=== PATIENT | female | born 1975 | race Caucasian/White ===

== ENCOUNTER → 2019-10-28 | Outpatient (CLI) | payer OTHER ==
[~2019-10-28] MED LIST: AMLO5TAB9 PO; ASPI-983 PO; ASPI-999 PO; ATOR20TA66 PO; LISI-552 PO; METO100T6 PO
== END ==
LOC: EDUNIT# 10-20 12:51 → CARD 11:01
PROVIDERS: ATTEND Nurse Practitioner Family
DX: R07.9 Chest pain, unspecified (principal); I10 Essential (primary) hypertension; R55 Syncope and collapse; R06.09 Other forms of dyspnea
CPT/HCPCS: 93225; 93226; 93306

== ENCOUNTER 2019-11-02 11:26 | Day surgery (SDC) | payer OTHER ==
[~2019-11-02] VITALS: Ht 157 cm; Wt 55.0 kg
[2019-11-02] VITALS (9 sets, daily range): BP systolic 109–143; BP diastolic 55–85
[2019-11-02] MEDS ORDERED: LIDOCAINE 1% INJ 20 ML 20 ML VIAL ONE (11:38)
[2019-11-02] MEDS ORDERED: HEParin (CATH LAB) 2,000 ML IV ONE (11:38)
[2019-11-02] MEDS ORDERED: NS IV 1000 ML 1,000 ML ONE (11:38)
[2019-11-02] MEDS ORDERED: NS IV 1000 ML 1,000 ML IV SCH ×2 (11:45→13:43)
--- OUTSIDE RECORDS SUMMARY | 2019-11-02 12:06 | XMS REPORT | Clinical Summary ---
Author Author Corky, Berna Mejía Organization [facility] Address Unknown Phone Unavailable Allergies, Adverse Reactions, Alerts Allergy Name Reaction Description Start Date Severity Status Pr ovider NKDA Critical Active Felisa tan LPN Conditions or Problems Problem Name Problem Code Onset Date Status Entry Date Provider Comment Standard Description Annotate HYPERLIPIDEMIA 272.4 Active Jaziel Canales DO Other and unspecified hyperlipidemia HYPERTENSION 401.9 Active Jaziel Canales DO U nspecified essential hypertension ABDOMINAL PAIN, EPIGASTRIC 789.06 Active Jaziel Canales DO Abdominal pain, epigastric FH DEPRESSION V17.0 Active Jaziel Canales DO Family history of psychiatric condition DEPRESSION 311 Active Jaziel Canales DO Dep ressive disorder, not elsewhere classified BMI 22-22.9 Active Felisa Obrien LPN Body Mass Index between 19-24, adult Medication List Medication Instructions Start Date Stop Date Generic Name ND Status Provider Patient Instruction AUGMENTIN 500-125 MG ORAL TABLET BID NELA XICILLIN-POT CLAVULANATE 86120616705 Active Felisa Obrien LPN Active [facility] MELATONIN 10 MG ORAL CAPSULE PRN to help with sleep MELATONIN 30690901791 Active Felisa Obrien LPN Active ACIDOPHILUS PROBIOTIC 10 MG ORAL CAPSULE 1 tablet daily LACTOBACILLUS 28197886957 Active Felisa Obrien LPN Active SM POTASSIUM 595 (99 K) MG ORAL TABLET 1 tablet daily POTASSIUM GLUCONATE 77599676297 Active Felisa Obrien LPN Active SERTRALINE HCL 50 MG ORAL TABLET 1 daily for depression SERTRALINE HCL 14578788922 No Longer Active Felisa Obrien LPN Ac tive RANITIDINE HCL 150 MG ORAL CAPSULE 1 twice a day 04/06 RANITIDINE HCL 37356594078 No Longer Active Felisa Obrien LPN Ac tive ZOLPIDEM TARTRATE 10 MG ORAL TABLET TAKE 1 TAB BY MOUT H AT BEDTIME NEEDED FOR INSOMNIA ZOLPIDEM TARTRATE 94691181944 No Longer Active Felisa Obrien LPN Active SIMVASTATIN 40 MG ORAL TABLET Take one by mouth daily 2018 SIMVASTATIN 51426842842 No Longer Active Felisa Obrien LPN Active LISINOPRIL 20 MG ORAL TABLET 1 tablet daily LISIN OPRIL 57100398642 Active Felisa Obrien LPN Active VERAPAMIL HCL 120 MG ORAL TABLET 1/2 tab by mouth twice daily VERAPAMIL HCL 30479636770 No Longer Active Jaziel Canales DO Active CELEXA 20 MG ORAL TABLET Take one by mouth daily for depression CITALOPRAM HYDROBROMIDE 15834918039 No Longer Active Jaziel Canales DO Active BENTYL 10 MG ORAL CAPSULE Take one by mouth 3 times da mehdi, morning, afternoon and evening.] DICYCLOMINE HCL 57199028707 No Longer A ctive Jaziel Canales DO Active BENTYL 10 MG ORAL CAPSULE Take one by mouth 3 times da mehdi, morning, afternoon and evening.] BENTYL 10 MG ORAL CAPSULE DICYCLO MINE HCL Inactive CELEXA 20 MG ORAL TABLET Take one by mouth daily for depression CELEXA 20 MG ORAL TABLET 507149 CITALOPRAM HYDROBROMIDE Inactive VERAPAMIL HCL 120 MG ORAL TABLET 1/2 tab by mouth twice daily VERAPAMIL HCL 120 MG ORAL TABLET 237413 VERAPAMIL HCL Inactiv e SIMVASTATIN 40 MG ORAL TABLET Take one by mouth daily SIMVASTATIN 40 MG ORAL TABLET 371004 SIMVASTATIN Inactive ZOLPIDEM TARTRATE 10 MG ORAL TABLET TAKE 1 TAB BY MOUT H AT BEDTIME NEEDED FOR INSOMNIA ZOLPIDEM TARTRATE 10 MG ORAL TABLET 67127 3 ZOLPIDEM TARTRATE Inactive RANITIDINE HCL 150 MG ORAL CAPSULE 1 twice a day 04/06 RANITIDINE HCL 150 MG ORAL CAPSULE 377007 RANITIDINE HCL Inact eitan SERTRALINE HCL 50 MG ORAL TABLET 1 daily for depression SERTRALINE HCL 50 MG ORAL TABLET 336364 SERTRALINE HCL Inactiv e Vital Signs Date Name Value Unit Range Description blood pressure, diastolic, second observation 89 m m[Hg] BP pérez blood pressure, diastolic, repeated by physician 89 BP pérez blood pressure, diastolic 97 mm[Hg] BP pérez blood pressure, systolic, second observation 139 mm [Hg] BP sys blood pressure, systolic, repeated by physician 139 BP sys blood pressure, systolic 159 mm[Hg] BP sys height E&M 61.25 [in_us] Bdy height pulse rate E&M 84 /min Heart rate temperature E&M 98.5 [degF] Body temp erature weight E&M 120 [lb_av] Weight Measure d Encounters Code Encounter Date Provider Facility CPT-90696 Level 3 Est. Patient 14:09:23 POSTING SPECIALIST Jaziel caicedo [facility] CPT-73260 Level 3 Est. Patient 14:46:14 CDT Jaziel caicedo [facility] CPT-27691 Level 3 Est. Patient 06:02:56 POSTING SPECIALIST Jaziel caicedo [facility] CPT-10203 Level 3 Est. Patient 13:25:14 POSTING SPECIALIST Jaziel caicedo [facility] CPT-12277 Level 3 Est. Patient 13:24:14 POSTING SPECIALIST Jaziel caicedo [facility]
--- OUTSIDE RECORDS SUMMARY | 2019-11-02 12:06 | XMS REPORT | Clinical Summary ---
Author Author Corky, Berna Mejía Organization [facility] Address Unknown Phone Unavailable Allergies, Adverse [...] Instructions Start Date Stop Date Generic Name NDC Status Provider Patient Instruction AUGMENTIN 500-125 MG ORAL TABLET BID NELA XICILLIN-POT CLAVULANATE 12168780507 Active Felisa Obrien LPN Active [facility] MELATONIN 10 MG ORAL CAPSULE PRN to help with sleep MELATONIN 44334633938 Active Felisa Obrien LPN Active ACIDOPHILUS PROBIOTIC 10 MG ORAL CAPSULE 1 tablet daily LACTOBACILLUS 07731646710 Active Felisa Obrien LPN Active SM POTASSIUM 595 (99 K) MG ORAL TABLET 1 tablet daily POTASSIUM GLUCONATE 53165473105 Active Felisa Obrien LPN Active SERTRALINE HCL 50 MG ORAL TABLET 1 daily for depression SERTRALINE HCL 53190403698 No Longer Active Felisa Obrien LPN Ac tive RANITIDINE HCL 150 MG ORAL CAPSULE 1 twice a day 04/06 RANITIDINE HCL 50155740024 No Longer Active Felisa Obrien LPN Ac tive ZOLPIDEM TARTRATE 10 MG ORAL TABLET TAKE 1 TAB BY MOUT H AT BEDTIME NEEDED FOR INSOMNIA ZOLPIDEM TARTRATE 60227861505 No Longer Active Felisa Obrien LPN Active SIMVASTATIN 40 MG ORAL TABLET Take one by mouth daily 2018 SIMVASTATIN 87204492638 No Longer Active Felisa Obrien LPN Active LISINOPRIL 20 MG ORAL TABLET 1 tablet daily LISIN OPRIL 45982761570 Active Felisa Obrien LPN Active VERAPAMIL HCL 120 MG ORAL TABLET 1/2 tab by mouth twice daily VERAPAMIL HCL 79787058572 No Longer Active Jaziel Canales DO Active CELEXA 20 MG ORAL TABLET Take one by mouth daily for depression CITALOPRAM HYDROBROMIDE 62769468431 No Longer Active Jaziel Canales DO Active BENTYL 10 MG ORAL CAPSULE Take one by mouth 3 times da mehdi, morning, afternoon and evening.] DICYCLOMINE HCL 97571600094 No Longer A ctive Jaziel Canales DO Active BENTYL 10 MG ORAL CAPSULE Take one by mouth 3 times da mehdi, morning, afternoon and evening.] BENTYL 10 MG ORAL CAPSULE DICYCLO MINE HCL Inactive CELEXA 20 MG ORAL TABLET Take one by mouth daily for depression CELEXA 20 MG ORAL TABLET 180136 CITALOPRAM HYDROBROMIDE Inactive VERAPAMIL HCL 120 MG ORAL TABLET 1/2 tab by mouth twice daily VERAPAMIL HCL 120 MG ORAL TABLET 441921 VERAPAMIL HCL Inactiv e SIMVASTATIN 40 MG ORAL TABLET Take one by mouth daily SIMVASTATIN 40 MG ORAL TABLET 295943 SIMVASTATIN Inactive ZOLPIDEM TARTRATE 10 MG ORAL TABLET TAKE 1 TAB BY MOUT H AT BEDTIME NEEDED FOR INSOMNIA ZOLPIDEM TARTRATE 10 MG ORAL TABLET 49545 3 ZOLPIDEM TARTRATE Inactive RANITIDINE HCL 150 MG ORAL CAPSULE 1 twice a day 04/06 RANITIDINE HCL 150 MG ORAL CAPSULE 569647 RANITIDINE HCL Inact eitan SERTRALINE HCL 50 MG ORAL TABLET 1 daily for depression SERTRALINE HCL 50 MG ORAL TABLET 472884 SERTRALINE HCL Inactiv e Vital Signs Date [...] d Encounters Code Encounter Date Provider Facility CPT-96419 Level 3 Est. Patient 14:09:23 SPEECH INSTRUCTOR Jaziel caicedo [facility] CPT-54941 Level 3 Est. Patient 14:46:14 CDT Jaziel caicedo [facility] CPT-50876 Level 3 Est. Patient 06:02:56 SPEECH INSTRUCTOR Jaziel caicedo [facility] CPT-22662 Level 3 Est. Patient 13:25:14 SPEECH INSTRUCTOR Jaziel caicedo [facility] CPT-73197 Level 3 Est. Patient 13:24:14 SPEECH INSTRUCTOR Jaziel caicedo [facility]
--- OUTSIDE RECORDS SUMMARY | 2019-11-02 12:06 | XMS REPORT ---
Author Author Berna LIMA Organization [address] Address [address] [place] [address] Care Team Providers Care Supportability Engineer Name Role Phone LIMA, MAIDA Unavailable PROBLEMS Type Condition ICD9-CM Code [id number] Code Onset Dates Condition S tatus SNOMED Code Problem HTN (hypertension), benign I10 Act eitan 50086236 Problem Abnormal laboratory test R89.9 Activ e [id number] ALLERGIES No Information ENCOUNTERS Encounter Location Date Diagnosis [facility] [address] [place] [id number] December, HTN (hypertension), benign I10 [facility] [address] [place] [address] Nov, Dental examination Z01.20 and Caries K02.[address] [address] Oct, Bilateral leg edema R60.0 and HTN (hypertension), benign I10 [facility] [address] [place] [address] Aug, Abnormal laboratory test R89.9 [facility] [address] [place] [address] Aug, Leg swelling M79.89 ; Strain of right trapezius muscle, sequela S46.811S and Upper respiratory tract infection, unspecified type J06.[address] [address] Aug, Bilateral leg edema R60.0 ; Exertional dyspnea R06.09 and Family history of heart disease Z82.49 [facility] [address] [id number] [place] [address] Aug, [place] [address] [place] [address] [facility] [id number] [place] [address] Jun, Encounter to establish care Z76.89 and HTN (hypertension), benign I10 IMMUNIZATIONS No Known Immunizations SOCIAL HISTORY Never Assessed REASON FOR VISIT Medication refill request PLAN OF CARE VITAL SIGNS MEDICATIONS Medication Instructions Dosage Frequency Start Date End Date Duration S tatus Lisinopril 20 mg Orally Once a day 1 tablet 24h Jun, 45 days Active Hydrochlorothiazide 25 MG Orally Once a day 1 tablet in the morning 24h Aug, 30 day(s) Active RESULTS No Results PROCEDURES No Known procedures INSTRUCTIONS MEDICATIONS ADMINISTERED No Known Medications MEDICAL (GENERAL) HISTORY Type Description Date Medical History HTN Surgical History tubes tied Hospitalization History childbirth
--- OUTSIDE RECORDS SUMMARY | 2019-11-02 12:06 | XMS REPORT | Clinical Summary ---
Author Author Corky, Berna Mejía Organization [facility] Address Unknown Phone Unavailable Allergies, Adverse Reactions, Alerts Allergy Name Reaction Description Start Date Severity Status Pr ovider No Known Allergies Randy Bailey Conditions or Problems Problem Name Problem Code [...] DO Dep ressive disorder, not elsewhere classified Medication List Medication Instructions Start Date Stop Date Generic Name NDC Status Provider Patient Instruction SERTRALINE HCL 50 MG ORAL TABLET 1 daily for depression SERTRALINE HCL 78735567726 Active Jaziel Canales DO Active RANITIDINE HCL 150 MG ORAL CAPSULE 1 twice a day RANITIDINE HCL 63646882787 Active Jaziel Canales DO Active VERAPAMIL HCL 120 MG ORAL TABLET 1/2 tab by mouth twice daily VERAPAMIL HCL 53336463596 No Longer Active Jaziel Canales DO Active CELEXA 20 MG ORAL TABLET Take one by mouth daily for depression CITALOPRAM HYDROBROMIDE 64669303986 No Longer Active Jaziel Canales DO Active BENTYL 10 MG ORAL CAPSULE Take one by mouth 3 times da mehdi, morning, afternoon and evening.] DICYCLOMINE HCL 55564564335 No Longer A ctive Jaziel Canales DO Active LISINOPRIL 10 MG ORAL TABLET Take one by mouth bid LISINOPRIL 22218937718 Active Jaziel Canales DO Active SIMVASTATIN 40 MG ORAL TABLET Take one by mouth daily SIMVASTATIN 95784644872 Active Jaziel Canales DO Active ZOLPIDEM TARTRATE 10 MG ORAL TABLET TAKE 1 TAB BY MOUT H AT BEDTIME NEEDED FOR INSOMNIA ZOLPIDEM TARTRATE 11222755668 Active Jaziel Canales DO Active BENTYL 10 MG ORAL CAPSULE Take one by mouth 3 times da mehdi, morning, afternoon and evening.] BENTYL 10 MG ORAL CAPSULE 871246 D ICYCLOMINE HCL Inactive VERAPAMIL HCL 120 MG ORAL TABLET 1/2 tab by mouth twice daily VERAPAMIL HCL 120 MG ORAL TABLET 488856 VERAPAMIL HCL Inactiv e CELEXA 20 MG ORAL TABLET Take one by mouth daily for depression CELEXA 20 MG ORAL TABLET 525082 CITALOPRAM HYDROBROMIDE Inactive Encounters Code Encounter Date Provider Facility CPT-74221 Level 3 Est. Patient 14:09:23 DIRECTOR HUMAN SERVICES Jaziel caicedo [facility] CPT-27294 Level 3 Est. Patient 14:46:14 CDT Jaziel caicedo [facility] CPT-94039 Level 3 Est. Patient 06:02:56 DIRECTOR HUMAN SERVICES Jaziel caicedo [facility] CPT-92501 Level 3 Est. Patient 13:25:14 DIRECTOR HUMAN SERVICES Jaziel caicedo DO [facility] CPT-73781 Level 3 Est. Patient 13:24:14 DIRECTOR HUMAN SERVICES Jaziel caicedo DO [facility]
--- OUTSIDE RECORDS SUMMARY | 2019-11-02 12:06 | XMS REPORT ---
Author Author Berna DARLING Organization [facility] [address] Address [address] [place] [address] Care Team Providers Care Riding Double Name Role Phone ARTIS DARLING Unavailable PROBLEMS Type Condition ICD9-CM Code [id number] Code Onset Dates Condition S tatus SNOMED Code Problem HTN (hypertension), benign I10 Act eitan [id number] ALLERGIES No Known Allergies ENCOUNTERS Encounter Location Date Diagnosis [facility] [address] [place] [address] Jun, Encounter to establish care Z76.89 and HTN (hypertension), benign I10 IMMUNIZATIONS No Known Immunizations SOCIAL HISTORY Never Assessed REASON FOR VISIT Establish Care- Luis E Hou RN, needs blood pressure medication verified with Carlos ashby at [facility] dosage of medication PLAN OF CARE Activity Details Follow Up 3 months or as indicated by lab Reason: VITAL SIGNS Height 62 in 2018-07-04 Weight 126 lbs 2018-07-04 Temperature 97.9 degrees Fahrenheit 2018-07-04 Heart Rate 98 bpm 2018-07-04 Respiratory Rate 18 2018-07-04 BMI 23.04 kg/m2 2018-07-04 Blood pressure systolic 124 mmHg 2018-07-04 Blood pressure diastolic 80 mmHg 2018-07-04 MEDICATIONS Medication Instructions Dosage Frequency Start Date End Date Duration S tatus Lisinopril 20 MG Orally Once a day 1 tablet 24h 30 d ay(s) Active Lisinopril 20 mg Orally Once a day 1 tablet 24h Jun, 45 days Active RESULTS No Results PROCEDURES No Known procedures INSTRUCTIONS MEDICATIONS ADMINISTERED No Known Medications MEDICAL (GENERAL) HISTORY Type Description Date Medical History HTN Surgical History tubes tied Hospitalization History childbirth
--- OUTSIDE RECORDS SUMMARY | 2019-11-02 12:06 | XMS REPORT ---
Author Author [email or web address] Staff[facility]AVEN Organization [facility] Address [address] [place] [address] Phone [phone] Care Team Providers Care Orthopedic Shoes Salesperson Name Role Phone MARIS TONG DO PP [phone] Summary purpose TRANSITION OF CARE AUTO GENERATION Chief Complaint and Reason for Visit No authorized Reason for Visit (Admitting Diagnosis) is available for this visit . Problem list No authorized problems tracked for continuity of care are available for this vis it. Encounters No authorized problems tracked for encounter diagnoses are available for this vi sit. Medications No medications recorded for this patient visit Allergies, adverse reactions, alerts Allergen Category Ingredient Status Reaction Severity Onset No Known Drug Allergy No known drug allergies No known drug vandana rgies Confirmed or Verified Immunizations No immunizations recorded for this patient visit Relevant diagnostic tests and/or laboratory data RESULTS Chemistry [id number]:31:00 Result Normal Range Units Sodium 137 134-145 mEq/l Potassium 3.5 3.5-5.1 mEq/l Chloride 101 98-107 mEq/l CO2 25.4 22-28 mEq/l Glucose H 109 70-105 mg/dl BUN L 5 7-18 mg/dl Creatinine 0.67 0.6-1.0 mg/dl Calcium 8.7 8.4-10.2 mg/dl TP - Total Protein 8.2 6.0-8.3 g /dl Albumin 4.2 3.5-5 g/dl Bilirubin - Total 0.5 0.1-1.0 mg /dl AST 20 10-42 IU/L ALT 28 12-65 IU/L ALP H 89 25-72 IU/L Amylase L 22 25-125 U/L Lipase L 49 73-393 U/L Osmolality L 271.7 280-300 mOsm/L Albumin/Globulin Ratio 1.1 0-8 Anion GAP 10.6 8-16 BUN/Creatinine Ratio L 7.5 10-20 Estimated GFR 97 >= 60 mL/min /1.7 Hematology :31:00 Result Normal Range Units WBC 9.2 4.8-10.8 103/uL RBC 4.9 4.2-5.4 106/uL HGB 14.9 12.0-16.0 g/dl HCT 43.6 36.9-47.0 % MCV 89.3 81-99 FL MCH 30.5 27-31 pg MCHC 34.2 33-37 g/dl RDW 11.9 11.5-15.5 % PLT 323 130-400 103/uL MPV 9.0 7.3-10.4 FL Neutro % H 77.6 40-70 % Lymph % L 10.8 20-40 % Bennett % 9.0 0-10.0 % Eos % 2.0 0-7.0 % Baso % 0.4 0-2 % Neutro # 7.2 1.5-7.5 103/uL Lymph # 1.0 0.9-4.0 103/uL Bennett # 0.8 0-0.8 103/uL Eos # 0.2 0-0.6 103/uL Baso # 0.0 0-0.1 103/uL Reference Lab (Sendout) :32:00 Result Normal Range Units Influenza A & B, Rapid Negative Negative Radiology Results :31:00 Result Normal Range Units MPV 9.0 7.3-10.4 FL History of procedures No procedures recorded for this patient visit. Functional status Functional Status Finding Observation Time Abdomen Appearance round [id number] Abdomen soft 03-18-551622:10 Urination normal [id number]:10 Quality sym/unlabored :10 Cough absent :10 Secretions no :10 Airway natural 85-29-020240:10 Oxygen no :00 Temp >100.4 no :05 Temp <96.8 no :05 Chills with rigors no :05 HR > 90bpm no :05 Respirations > 20 no :05 Systolic <90 no :05 headache stiff neck no :05 IV Site Location R AC :05 IV Type peripheral :05 IV Site Information discontinued : IV Site Start Attmpt 2 times :40 IV Site Kodi 20 [id number]:40 IV Site Appearance WNL :40 IV Site Color clear :40 IV Site Patent yes :40 Dressing Changed yes :40 Dressing Type occlusive :40 Nursing Note Discharge instructionsgiven, voices understanding. Rx zofran et zithromax. Homepack zofran. Iv site dcd. Amb off unit in fair condition. :05 Vital signs Type Value Date Respiration Rate 18breaths per minute : 00 Pulse 98beats per minute :00 Oxygen Saturation 99% :00 BP Systolic 157mmHg :00 BP Diastolic 89mmHg [id number]:00 Temperature 98.8F :54 Weight 144.2LB :54 Social history No Social History or smoking status observations were recorded for this visit. ( Unknown if ever smoked.) Treatment Plan No treatment plan text is available for this visit. Hospital discharge instructions Dismissal Condition good Disposition on DC home DC Inst/Educ Give yes Med/Side Effects Rev yes Comment: rx zithromax et zofran, homepack zofran
--- OUTSIDE RECORDS SUMMARY | 2019-11-02 12:06 | XMS REPORT | Clinical Summary ---
Author Author Corky, Berna Mejía Organization [facility] Address Unknown Phone Unavailable Allergies, Adverse Reactions, [...] MG ORAL TABLET BID NELA XICILLIN-POT CLAVULANATE 11004454307 Active Felisa Obrien LPN Active [facility] MELATONIN 10 MG ORAL CAPSULE PRN to help with sleep MELATONIN 45867201740 Active Felisa Obrien LPN Active ACIDOPHILUS PROBIOTIC 10 MG ORAL CAPSULE 1 tablet daily LACTOBACILLUS 22143489471 Active Felisa Obrien LPN Active SM POTASSIUM 595 (99 K) MG ORAL TABLET 1 tablet daily POTASSIUM GLUCONATE 11636850057 Active Felisa Obrien LPN Active SERTRALINE HCL 50 MG ORAL TABLET 1 daily for depression SERTRALINE HCL 90919329075 No Longer Active Felisa Obrien LPN Ac tive RANITIDINE HCL 150 MG ORAL CAPSULE 1 twice a day 04/06 RANITIDINE HCL 92955548719 No Longer Active Felisa Obrien LPN Ac tive ZOLPIDEM TARTRATE 10 MG ORAL TABLET TAKE 1 TAB BY MOUT H AT BEDTIME NEEDED FOR INSOMNIA ZOLPIDEM TARTRATE 05054500698 No Longer Active Felisa Obrien LPN Active SIMVASTATIN 40 MG ORAL TABLET Take one by mouth daily 2018 SIMVASTATIN 80663719119 No Longer Active Felisa Obrien LPN Active LISINOPRIL 20 MG ORAL TABLET 1 tablet daily LISIN OPRIL 11597261900 Active Felisa Obrien LPN Active VERAPAMIL HCL 120 MG ORAL TABLET 1/2 tab by mouth twice daily VERAPAMIL HCL 01986475068 No Longer Active Jaziel Canales DO Active CELEXA 20 MG ORAL TABLET Take one by mouth daily for depression CITALOPRAM HYDROBROMIDE 77303628684 No Longer Active Jaziel Canales DO Active BENTYL 10 MG ORAL CAPSULE Take one by mouth 3 times da mehdi, morning, afternoon and evening.] DICYCLOMINE HCL 54412891695 No Longer A ctive Jaziel Canales DO Active BENTYL 10 MG ORAL CAPSULE Take one by mouth 3 times da mehdi, morning, afternoon and evening.] BENTYL 10 MG ORAL CAPSULE DICYCLO MINE HCL Inactive CELEXA 20 MG ORAL TABLET Take one by mouth daily for depression CELEXA 20 MG ORAL TABLET 086870 CITALOPRAM HYDROBROMIDE Inactive VERAPAMIL HCL 120 MG ORAL TABLET 1/2 tab by mouth twice daily VERAPAMIL HCL 120 MG ORAL TABLET 167721 VERAPAMIL HCL Inactiv e SIMVASTATIN 40 MG ORAL TABLET Take one by mouth daily SIMVASTATIN 40 MG ORAL TABLET 556649 SIMVASTATIN Inactive ZOLPIDEM TARTRATE 10 MG ORAL TABLET TAKE 1 TAB BY MOUT H AT BEDTIME NEEDED FOR INSOMNIA ZOLPIDEM TARTRATE 10 MG ORAL TABLET 94450 3 ZOLPIDEM TARTRATE Inactive RANITIDINE HCL 150 MG ORAL CAPSULE 1 twice a day 04/06 RANITIDINE HCL 150 MG ORAL CAPSULE 845876 RANITIDINE HCL Inact eitan SERTRALINE HCL 50 MG ORAL TABLET 1 daily for depression SERTRALINE HCL 50 MG ORAL TABLET 289985 SERTRALINE HCL Inactiv e Vital Signs Date [...] d Encounters Code Encounter Date Provider Facility CPT-72710 Level 3 Est. Patient 14:09:23 DRIVER SERVICE TECHNICIAN Jaziel caicedo [facility] CPT-25266 Level 3 Est. Patient 14:46:14 CDT Jaziel caicedo [facility] CPT-96179 Level 3 Est. Patient 06:02:56 DRIVER SERVICE TECHNICIAN Jaziel caicedo [facility] CPT-82897 Level 3 Est. Patient 13:25:14 DRIVER SERVICE TECHNICIAN Jaziel caicedo [facility] CPT-19528 Level 3 Est. Patient 13:24:14 DRIVER SERVICE TECHNICIAN Jaziel caicedo [facility]
--- OUTSIDE RECORDS SUMMARY | 2019-11-02 12:06 | XMS REPORT ---
Author Author [facility] Medic [facility] StaffHEAVEN Organization [facility] Address [address], [place] [address] Phone [phone] Care Team Providers Care Dental Appliance Repairer Name Role Phone MARIS TONG DO PP [phone] Summary purpose TRANSITION OF CARE AUTO GENERATION [...] diagnostic tests and/or laboratory data RESULTS Chemistry [id number]:31:00 Result Normal Range Units Sodium 137 134-145 [...] GFR 97 >= 60 mL/min /1.7 Hematology 63-79-170219:31:00 Result Normal Range Units WBC 9.2 4.8-10.8 103/uL RBC 4.9 4.2-5.4 106/uL HGB 14.9 12.0-16.0 g/dl HCT 43.6 36.9-47.0 % MCV 89.3 81-99 FL MCH 30.5 27-31 pg MCHC 34.2 33-37 g/dl RDW 11.9 11.5-15.5 % PLT 323 130-400 103/uL MPV 9.0 7.3-10.4 FL Neutro % H 77.6 40-70 % Lymph % L 10.8 20-40 % [place] % 9.0 0-10.0 % Eos % 2.0 0-7.0 % Baso % 0.4 0-2 % Neutro # 7.2 1.5-7.5 103/uL Lymph # 1.0 0.9-4.0 103/uL [place] # 0.8 0-0.8 103/uL Eos # 0.2 0-0.6 103/uL Baso # 0.0 0-0.1 103/uL Reference Lab ([facility]) [id number]:32:00 Result Normal Range Units Influenza A & B, Rapid Negative Negative Radiology Results [id number]:31:00 Result Normal Range Units MPV 9.0 7.3-10.4 FL History of procedures Procedure Code Code Type Description Date Performed Performing Physician 46479 CPT-4 ROUTINE VENIPUNCTURE 10-11-2015 AYAKA WANG 83367 CPT-4 COMPREHEN METABOLIC PANEL 10-11-2015 ROSEMARIE WANG 75416 CPT-4 ASSAY OF AMYLASE 10-11-2015 ROSEMARIE MARTELL 59520 CPT-4 ASSAY OF LIPASE 10-11-2015 ROSEMARIE MONTENEGRO 65786 CPT-4 COMPLETE CBC W/AUTO DIFF WBC 10-11-2015 ROSEMARIE WANG 77782 CPT-4 INFLUENZA DNA AMP PROBE 10-11-2015 STACI WANG J1885 CPT-4 KETOROLAC TROMETHAMINE INJ 10-11-2015 ROSEMARIE WANG J2405 CPT-4 ONDANSETRON HCL INJECTION 10-11-2015 ROSEMARIE WANG 12436 CPT-4 EMERGENCY DEPT VISIT 10-11-2015 AYAKA WANG 44938 CPT-4 EMERGENCY DEPT VISIT 10-11-2015 AYAKA WANG 35155 CPT-4 THER/PROPH/DIAG INJ IV PUSH 10-11-2015 ROSEMARIE WANG 67110 CPT-4 TX/PRO/DX INJ NEW DRUG ADDON 10-11-2015 ROSEMARIE WANG 89077 CPT-4 HYDRATE IV INFUSION ADD-ON 10-11-2015 ROSEMARIE WANG Functional status Functional Status Finding Observation Time Abdomen Appearance round 45-69-517263:10 Abdomen soft 93-28-290313:10 Urination normal 77-77-540139:10 Quality sym/unlabored :10 Cough absent :10 Secretions no :10 Airway natural :10 Oxygen no :00 Temp >100.4 no :05 Temp <96.8 no :05 Chills with rigors no 12-82-583378:05 HR > 90bpm no 33-52-745886:05 Respirations > 20 no :05 Systolic <90 no 16-38-085278:05 headache stiff neck no 82-00-549339:05 IV Site Location R AC :05 IV Type peripheral 40-45-923925:05 IV Site Information discontinued 38-62-749110:05 IV Site Start Attmpt 2 times 85-78-692947:40 IV Site K[place] 20 08-73-860259:40 IV Site Appearance WNL 19-58-375416:40 IV Site Color clear 27-10-217389:40 IV Site Patent yes [id number]:40 Dressing Changed yes 88-64-051004:40 Dressing Type occlusive :40 Nursing Note Discharge instructionsgiven, voices understanding. Rx zofran et zithromax. Homepack zofran. Iv site dcd. Amb off unit in fair condition. :05 Vital signs Type Value Date Respiration Rate 18breaths per minute : 00 Pulse 98beats per minute :00 Oxygen Saturation 99% :00 BP Systolic 157mmHg :00 BP Diastolic 89mmHg :00 Temperature 98.8F :54 Weight 144.2LB :54 Social [...]
--- OUTSIDE RECORDS SUMMARY | 2019-11-02 12:06 | XMS REPORT | Clinical Summary ---
Author Author Corky, Berna Mejía Organization [facility] Address Unknown Phone Unavailable Allergies, Adverse [...] TABLET 1 daily for depression SERTRALINE HCL 87570126408 Active Jaziel Canales DO Active RANITIDINE HCL 150 MG ORAL CAPSULE 1 twice a day RANITIDINE HCL 64913409092 Active Jaziel Canales DO Active VERAPAMIL HCL 120 MG ORAL TABLET 1/2 tab by mouth twice daily VERAPAMIL HCL 71636691718 No Longer Active Jaziel Canales DO Active CELEXA 20 MG ORAL TABLET Take one by mouth daily for depression CITALOPRAM HYDROBROMIDE 51789412508 No Longer Active Jaziel Canales DO Active BENTYL 10 MG ORAL CAPSULE Take one by mouth 3 times da mehdi, morning, afternoon and evening.] DICYCLOMINE HCL 32424369222 No Longer A ctive Jaziel Canales DO Active LISINOPRIL 10 MG ORAL TABLET Take one by mouth bid LISINOPRIL 36270451829 Active Jaziel Canales DO Active SIMVASTATIN 40 MG ORAL TABLET Take one by mouth daily SIMVASTATIN 45838578825 Active Jaziel Canales DO Active ZOLPIDEM TARTRATE 10 MG ORAL TABLET TAKE 1 TAB BY MOUT H AT BEDTIME NEEDED FOR INSOMNIA ZOLPIDEM TARTRATE 95320991533 Active Jaziel Canales DO Active BENTYL 10 MG ORAL CAPSULE Take one by mouth 3 times da mehdi, morning, afternoon and evening.] BENTYL 10 MG ORAL CAPSULE 437292 D ICYCLOMINE HCL Inactive CELEXA 20 MG ORAL TABLET Take one by mouth daily for depression CELEXA 20 MG ORAL TABLET 429297 CITALOPRAM HYDROBROMIDE Inactive VERAPAMIL HCL 120 MG ORAL TABLET 1/2 tab by mouth twice daily VERAPAMIL HCL 120 MG ORAL TABLET 161437 VERAPAMIL HCL Inactiv e Encounters Code Encounter Date Provider Facility CPT-57213 Level 3 Est. Patient 14:09:23 SENIOR TELECOMMUNICATIONS TECHNICIAN Jaziel caicedo [facility] CPT-55699 Level 3 Est. Patient 14:46:14 CDT Jaziel caicedo DO [facility] CPT-79141 Level 3 Est. Patient 06:02:56 SENIOR TELECOMMUNICATIONS TECHNICIAN Jaziel caicedo DO [facility] CPT-36561 Level 3 Est. Patient 13:25:14 SENIOR TELECOMMUNICATIONS TECHNICIAN Jaziel caicedo DO [facility] CPT-76410 Level 3 Est. Patient 13:24:14 SENIOR TELECOMMUNICATIONS TECHNICIAN Jaziel caicedo DO [facility]
--- OUTSIDE RECORDS SUMMARY | 2019-11-02 12:06 | XMS REPORT | Clinical Summary ---
Author Author Corky, Berna Mejía Organization [facility] Address Unknown Phone Unavailable Allergies, Adverse [...] MG ORAL TABLET BID NELA XICILLIN-POT CLAVULANATE 11903165088 Active Felisa Obrien LPN Active [facility] MELATONIN 10 MG ORAL CAPSULE PRN to help with sleep MELATONIN 31233689337 Active Felisa Obrien LPN Active ACIDOPHILUS PROBIOTIC 10 MG ORAL CAPSULE 1 tablet daily LACTOBACILLUS 28842805893 Active Felisa Obrien LPN Active SM POTASSIUM 595 (99 K) MG ORAL TABLET 1 tablet daily POTASSIUM GLUCONATE 94740287975 Active Felisa Obrien LPN Active SERTRALINE HCL 50 MG ORAL TABLET 1 daily for depression SERTRALINE HCL 03451696748 No Longer Active Felisa Obrien LPN Ac tive RANITIDINE HCL 150 MG ORAL CAPSULE 1 twice a day 04/06 RANITIDINE HCL 89639459476 No Longer Active Felisa Obrien LPN Ac tive ZOLPIDEM TARTRATE 10 MG ORAL TABLET TAKE 1 TAB BY MOUT H AT BEDTIME NEEDED FOR INSOMNIA ZOLPIDEM TARTRATE 90145768951 No Longer Active Felisa Obrien LPN Active SIMVASTATIN 40 MG ORAL TABLET Take one by mouth daily 2018 SIMVASTATIN 81519966885 No Longer Active Felisa Obrien LPN Active LISINOPRIL 20 MG ORAL TABLET 1 tablet daily LISIN OPRIL 77020484912 Active Felisa Obrien LPN Active VERAPAMIL HCL 120 MG ORAL TABLET 1/2 tab by mouth twice daily VERAPAMIL HCL 75583130584 No Longer Active Jaziel Canales DO Active CELEXA 20 MG ORAL TABLET Take one by mouth daily for depression CITALOPRAM HYDROBROMIDE 17084117010 No Longer Active Jaziel Canales DO Active BENTYL 10 MG ORAL CAPSULE Take one by mouth 3 times da mehdi, morning, afternoon and evening.] DICYCLOMINE HCL 58006622936 No Longer A ctive Jaziel Canales DO Active BENTYL 10 MG ORAL CAPSULE Take one by mouth 3 times da mehdi, morning, afternoon and evening.] BENTYL 10 MG ORAL CAPSULE DICYCLO MINE HCL Inactive CELEXA 20 MG ORAL TABLET Take one by mouth daily for depression CELEXA 20 MG ORAL TABLET 289364 CITALOPRAM HYDROBROMIDE Inactive VERAPAMIL HCL 120 MG ORAL TABLET 1/2 tab by mouth twice daily VERAPAMIL HCL 120 MG ORAL TABLET 126946 VERAPAMIL HCL Inactiv e SIMVASTATIN 40 MG ORAL TABLET Take one by mouth daily SIMVASTATIN 40 MG ORAL TABLET 626322 SIMVASTATIN Inactive ZOLPIDEM TARTRATE 10 MG ORAL TABLET TAKE 1 TAB BY MOUT H AT BEDTIME NEEDED FOR INSOMNIA ZOLPIDEM TARTRATE 10 MG ORAL TABLET 40710 3 ZOLPIDEM TARTRATE Inactive RANITIDINE HCL 150 MG ORAL CAPSULE 1 twice a day 04/06 RANITIDINE HCL 150 MG ORAL CAPSULE 518216 RANITIDINE HCL Inact eitan SERTRALINE HCL 50 MG ORAL TABLET 1 daily for depression SERTRALINE HCL 50 MG ORAL TABLET 729468 SERTRALINE HCL Inactiv e Vital Signs Date [...] d Encounters Code Encounter Date Provider Facility CPT-46540 Level 3 Est. Patient 14:09:23 EXTRUDING DEPARTMENT SUPERVISOR Jaziel caicedo [facility] CPT-62568 Level 3 Est. Patient 14:46:14 CDT Jaziel caicedo [facility] CPT-60080 Level 3 Est. Patient 06:02:56 EXTRUDING DEPARTMENT SUPERVISOR Jaziel caicedo [facility] CPT-80994 Level 3 Est. Patient 13:25:14 EXTRUDING DEPARTMENT SUPERVISOR Jaziel caicedo [facility] CPT-04275 Level 3 Est. Patient 13:24:14 EXTRUDING DEPARTMENT SUPERVISOR Jaziel caicedo [facility]
--- OUTSIDE RECORDS SUMMARY | 2019-11-02 12:06 | XMS REPORT | Clinical Summary ---
Author Author Corky, Berna Mejía Organization [facility] Address Unknown Phone Unavailable Allergies, Adverse [...] Provider Patient Instruction SERTRALINE HCL 50 MG TABS 1 daily for depression SERTRALINE HCL 44750909650 Active aJziel Canales DO Active RANITIDINE HCL 150 MG CAPS 1 twice a day RANITI DINE HCL 66526240206 Active Jaziel Canales DO Active VERAPAMIL HCL 120 MG TABS 1/2 tab by mouth twice daily VERAPAMIL HCL 79685160491 No Longer Active Jaziel Canales DO Active CELEXA 20 MG TABS Take one by mouth daily for depression CITALOPRAM HYDROBROMIDE 87722876442 No Longer Active Jaziel Canales DO Active BENTYL 10 MG CAPS Take one by mouth 3 times da mehdi, morning, afternoon and evening.] DICYCLOMINE HCL 36926657241 No Longer Active Jaziel Canales DO Active LISINOPRIL 10 MG TABS Take one by mouth bid LISIN OPRIL 84661200563 Active Jaziel Canales DO Active SIMVASTATIN 40 MG TABS Take one by mouth daily SIM VASTATIN 19618073712 Active Jaziel Canales DO Active ZOLPIDEM TARTRATE 10 MG TABS TAKE 1 TAB BY MOUTH AT BE DTIME NEEDED FOR INSOMNIA ZOLPIDEM TARTRATE 08391740112 Active Jaziel Canales DO Active BENTYL 10 MG CAPS Take one by mouth 3 times da mehdi, morning, afternoon and evening.] BENTYL 10 MG CAPS 287762 DICYCLOMINE HCL Inactive CELEXA 20 MG TABS Take one by mouth daily for depression CELEXA 20 MG TABS 561515 CITALOPRAM HYDROBROMIDE Inactive VERAPAMIL HCL 120 MG TABS 1/2 tab by mouth twice daily VERAPAMIL HCL 120 MG TABS 063034 VERAPAMIL HCL Inactive Encounters Code Encounter Date Provider Facility CPT-60052 Level 3 Est. Patient 14:09:[address] STENOGRAPHER Jaziel caicedo DO [facility] CPT-21465 Level 3 Est. Patient 14:46:14 CDT Jaziel caicedo DO [facility] CPT-93561 Level 3 Est. Patient 06:02:[address] STENOGRAPHER Jaziel caicedo DO [facility] CPT-88103 Level 3 Est. Patient 13:25:[address] STENOGRAPHER Jaziel caicedo DO [facility] CPT-86282 Level 3 Est. Patient 13:24:[address] STENOGRAPHER Jaziel caicedo DO [facility]
[2019-11-02 12:07] LABS: HEMOGLOBIN 12.1 G/DL (11.5-16.0); MEAN PLATELET VOLUME 9.1 FL (7.4-10.4); RED CELL DISTRIBUTION WIDTH 18.3 % (10.0-14.5); WHITE BLOOD COUNT 9.6 10^3/uL (4.3-11.0)
--- OUTSIDE RECORDS SUMMARY | 2019-11-02 12:07 | XMS REPORT | Continuity of Care Document ---
Author Organization Unknown Address Unknown Phone Unavailable Allergies Active Description Code Type Severity Reaction Onset Reported/Identified Relationship to Patient Clinical Status Yes No known drug allergies [id number] ND N/A N/A Yes No Known Medication Allergies Drug N/A N/A Medications There is no data. Problems Date Dx Coded Attending Type Code Diagnosis Diagnosed By 03/30/2019 RAFAELA MONIQUE Final D72.829 Elevated white blood cell count, unspecified 03/30/2019 RAFAELA MONIQUE Final I10 Essential (primary) hypertension 03/30/2019 RAFAELA MONIQUE Reason For Visit R10.2 Pelvic and perineal pain 03/30/2019 RAFAELA MONIQUE Final R11.2 Nausea with vomiting, unspecified 04/06/2019 Laura COOPER, Shai Z68.22 BMI 22-22.9 Procedures Code Description [place] [address] ROUT INE VENIPUNCTURE 10/11/2015 10168 COMP REHEN METABOLIC PANEL 10/11/2015 92479 ASSA Y OF AMYLASE 10/11/2015 80782 ASSA Y OF LIPASE 10/11/2015 30993 COMP LETE CBC W/AUTO DIFF WBC 10/11/2015 57709 INFL UENZA DNA AMP PROBE 10/11/2015 33850 HYDR ATE IV INFUSION, ADD-ON 10/11/2015 88044 THER /PROPH/DIAG INJ, IV PUSH 10/11/2015 11818 TX/P RO/DX INJ NEW DRUG ADDON 10/11/2015 27839 BOBBY GENCY DEPT VISIT 10/11/2015 29646 BOBBY GENCY DEPT VISIT 10/11/2015 J1885 YAA DOL SYR 30MG/ML 10/11/2015 J2405 ONDA NSETRON HCL INJECTION 10/11/2015 Results Test Result Range CBC WITH DIFF - 10/11/15 00:00 BASO% 0.4 % 0-2 EOS% 2.0 % 0-7.0 HCT 43.6 % 36.9-47.0 HGB 14.9 G/DL 12.0-16.0 LYMPH% 10.8 % 20-40 MCH 30.5 PG 27-31 MCHC 34.2 G/DL 33-37 MCV 89.3 FL 81-99 MONO% 9.0 % 0-10.0 MPV 9.0 FL 7.3-10.4 NEUTRO% 77.6 % 40-70 PLT 323 10^3u 130-400 RBC 4.9 10^6u 4.2-5.4 RDW 11.9 % 11.5-15.5 WBC 9.2 10^3u 4.8-10.8 NEUTRO# 7.2 10^3u 1.5-7.5 LYMPH# 1.0 10^3u 0.9-4.0 MONO# 0.8 10^3u 0-0.8 EOS# 0.2 10^3u 0-0.6 BASO# 0.0 10^3u 0-0.1 IMM GRANULOCYTE % 0.2 % IMM GRANULOCYTE # 0.0 10^3u 0-5 MAIDA - 10/11/15 00:00 MAIDA 22 U/L 25-125 LIP - 10/11/15 00:00 LIP 49 U/L 73-393 CMP - 10/11/15 00:00 ALB 4.2 G/DL 3.5-5 ALP 89 IU/L 25-72 ALT 28 IU/L 12-65 AST 20 IU/L 10-42 BCR 7.5 10-20 BUN 5 MG/DL 7-18 CA 8.7 MG/DL 8.4-10.2 CL 101 MEQ/L 98-107 CO2 25.4 MEQ/L 22-28 CREA 0.67 MG/DL 0.6-1.0 EGFR 97 eGFR >= 60 GLU 109 MG/DL 70-105 K 3.5 MEQ/L 3.5-5.1 NA 137 MEQ/L 134-145 OSMSC 271.7 MOSML 280-300 TBIL 0.5 MG/DL 0.1-1.0 TP 8.2 G/DL 6.0-8.3 Albumin/Globulin Ratio 1.1 0-8 Anion Gap 10.6 8-16 INFLU A B RAPID - 10/11/15 00:00 INFLRAP N Negative Encounters ACCT No. Visit Date/Time Discharge Status Pt. Type Provider Facility Loc./Unit Complaint [id number] 03/30/2019 20:43:01 9 11:45:00 DIS Inpatient SHAI SANCHEZ [facility] MADDY MS PID, fever [id number] 03/30/2019 12:45:14 9 19:28:00 DIS Emergency RAFAELA MONIQUE [facility] ED ED Visit [id number] 08/22/2018 17:48:00 9 20:19:00 DIS Emergency ROSEMARIE WANG [facility] MADDY ED ed visit [id number] 06/01/2018 00:26:00 8 01:27:00 DIS Emergency RAFAELA ADAIR [facility] ED ER [id number] 04/14/2018 14:55:07 8 23:59:59 DIS Outpatient BLAKE STONE [facility] [id number] 11/20/2017 07:25:00 8 07:55:00 DIS Emergency RAFAELA ADAIR [facility] MADDY ED ed visit [id number] 09/05/2017 18:11:00 8 18:17:00 DIS Emergency ROSEMARIE WANG [facility] ED ed visit [id number] 09/03/2017 15:42:00 8 17:15:00 DIS Emergency LOLA BARRETT [facility] ED ed visit [id number] 09/01/2017 15:15:00 8 17:37:00 DIS Emergency RAFAELA ADAIR [facility] MADDY ED ed visit [id number] 10/11/2015 17:54:00 10/11/2015 20:10 :00 DIS Emergency ROSEMARIE WANG [facility] EMR [id number] 03/17/2018 11:16:43 Document Registration [id number] 07/10/2015 00:00:00 Document Registration [id number] 07/13/2019 16:34:11 ACT Unknown Shai Sanchez MD [id number] 10/28/2019 11:01:00 03/19/2 020 23:59:59 CLS Outpatient SUMI BLAND [facility] CARD CHEST PAIN,HYPERTENSION,SYNCOPE,DYSPNEA [id number] 11/02/2019 13:00:00 Adrianne MARTELL MD FACC, ARIEL GUPTA CCDS [facility] CHEST PAIN,UNCONTROLLED HTN, SYNCOPE,DYSPNEA [id number] 11/23/2018 14:00:00 11/23/2018 23:59: 59 CLS Outpatient MAIDA LIMA PA-C [facility] [address]
--- OUTSIDE RECORDS SUMMARY | 2019-11-02 12:07 | XMS REPORT | Clinical Summary ---
Author Author Corky, Berna Mejía Organization [facility] Address Unknown Phone Unavailable Allergies, Adverse [...] TABS 1 daily for depression SERTRALINE HCL 72481634806 Active Jaziel Canales DO Active RANITIDINE HCL 150 MG CAPS 1 twice a day RANITI DINE HCL 52056304043 Active Jaziel Canales DO Active VERAPAMIL HCL 120 MG TABS 1/2 tab by mouth twice daily VERAPAMIL HCL 30541372256 No Longer Active Jaziel Canales DO Active CELEXA 20 MG TABS Take one by mouth daily for depression CITALOPRAM HYDROBROMIDE 22217417644 No Longer Active Jaziel Canales DO Active BENTYL 10 MG CAPS Take one by mouth 3 times da mehdi, morning, afternoon and evening.] DICYCLOMINE HCL 24786850506 No Longer Active Jaziel Canales DO Active LISINOPRIL 10 MG TABS Take one by mouth bid LISIN OPRIL 24428407618 Active Jaziel Canales DO Active SIMVASTATIN 40 MG TABS Take one by mouth daily SIM VASTATIN 93836358604 Active Jaziel Canales DO Active ZOLPIDEM TARTRATE 10 MG TABS TAKE 1 TAB BY MOUTH AT BE DTIME NEEDED FOR INSOMNIA ZOLPIDEM TARTRATE 41188102917 Active Jaziel Canales DO Active BENTYL 10 MG CAPS Take one by mouth 3 times da mehdi, morning, afternoon and evening.] BENTYL 10 MG CAPS 108385 DICYCLOMINE HCL Inactive CELEXA 20 MG TABS Take one by mouth daily for depression CELEXA 20 MG TABS 358175 CITALOPRAM HYDROBROMIDE Inactive VERAPAMIL HCL 120 MG TABS 1/2 tab by mouth twice daily VERAPAMIL HCL 120 MG TABS 600254 VERAPAMIL HCL Inactive Encounters Code Encounter Date Provider Facility CPT-11750 Level 3 Est. Patient 14:09:23 C D STILL OPERATOR Jaziel caicedo DO [facility] CPT-49548 Level 3 Est. Patient 14:46:14 CDT Jaziel caicedo DO [facility] CPT-68300 Level 3 Est. Patient 06:02:56 C D STILL OPERATOR Jaziel caicedo DO [facility] CPT-67096 Level 3 Est. Patient 13:25:14 C D STILL OPERATOR Jaziel caicedo DO [facility] CPT-79762 Level 3 Est. Patient 13:24:14 C D STILL OPERATOR Jaziel caicedo DO [facility]
[2019-11-02] MEDS ORDERED: AMLO5TAB9 PO (12:10)
[2019-11-02] MEDS ORDERED: LISI-552 PO (12:10)
[2019-11-02] MEDS ORDERED: METO100T6 PO (12:10)
[2019-11-02] MEDS ORDERED: ASPI-983 PO (12:10)
[2019-11-02 12:20] LABS: INR 0.9 (0.8-1.4); PROTHROMBIN TIME PATIENT 12.2 SEC (12.2-14.7)
[2019-11-02] MEDS ORDERED: MIDAZOLAM 5 MG/5 ML (VERSED) VIAL ONE (12:24)
[2019-11-02] MEDS ORDERED: fentaNYL INJECTION 100 MCG/2 ML AMP ONE (12:24)
[2019-11-02 12:26] LABS: ALANINE AMINOTRANSFERASE 26 U/L (0-55); ALBUMIN 4.2 GM/DL (3.2-4.5); ALKALINE PHOSPHATASE 73 U/L (40-136); BILIRUBIN,TOTAL 0.1 MG/DL (0.1-1.0); BUN/CREATININE RATIO 29; CARBON DIOXIDE 21 MMOL/L (21-32); CHLORIDE 103 MMOL/L (98-107); CHOLESTEROL 200 MG/DL (< 200); GFR ESTIMATED > 60; GLUCOSE 94 MG/DL (70-105); HDL CHOLESTEROL 52 MG/DL (40-60); POTASSIUM 4.5 MMOL/L (3.6-5.0); SODIUM 133 MMOL/L (135-145); TOTAL PROTEIN 8.2 GM/DL (6.4-8.2); TRIGLYCERIDES 83 MG/DL (<150); VLDL CHOLESTEROL 17 MG/DL (5-40)
--- NOTE | 2019-11-02 13:42 | Cardiac Procedure Note-CS/ASA ---
Pre-Procedure Note Pre-Op Procedure Note H&P Reviewed The H&P was reviewed, patient examined and no changes noted. Date H&P Reviewed: Nov 02, 2019 Time H&P Reviewed: 13:00 Conscious Sedation Pre-Proced Time 13:00 ASA Score 3 For ASA 3 and 4: Consider anesthesia and medical clearance. Also, for patients with a history of failed moderate sedation consider anesthesia. Airway Lungs Heart ASA score ASA 1: a normal healthy patient ASA 2: a patient with a mild systemic disease (mid diabetes, controlled hypertension, obesity ASA 3: a patient with a severe systemic disease that limits activity (angina, COPD, prior Myocardial infarction) ASA 4: a patient with an incapacitating disease that is a constant threat to life (CHF, renal failure) ASA 5: a moribund patient not expected to survive 24 hrs. (ruptured aneurysm) ASA 6: a declared brain- patient whose organs are being harvested. For emergent operations, add the letter E after the classification Mallampati Classification Grade 2 Sedation Plan Analgesia, Amnesia, Plan communicated to team members, Discussed options with patient/fam, Discussed risks with patient/fam The patient is an appropriate candidate to undergo the planned procedure, sedation, and anesthesia. The patient immediately re-assessed prior to indication. ARIEL MARTELL MD FACP FAC CCDS Nov 02, 2019 13:42
[2019-11-02] MEDS ORDERED: PATIENT MAY USE OWN MEDS, ALL PO SCH (13:45)
[2019-11-02] MEDS ORDERED: ATOR20TA66 PO (13:47)
[2019-11-02] MEDS ORDERED: ASPI-999 PO (13:47)
--- NOTE | 2019-11-02 13:48 | Discharge Inst-Cardiology ---
Discharge Inst-Cardiac Discharge Medications New Medications: Aspirin (Aspirin) 81 Mg Tab.chew 81 MG PO DAILY for 90 Days, #90 TAB 3 Refills Atorvastatin Calcium (Atorvastatin Calcium) 20 Mg Tablet 20 MG PO DAILY for 90 Days, #90 TAB 3 Refills Continued Medications: Amlodipine Besylate (Amlodipine Besylate) 5 Mg Tablet 5 MG PO DAILY, TAB Lisinopril (Lisinopril) 20 Mg Tablet 20 MG PO DAILY, TAB Metoprolol Succinate (Toprol Xl) 100 Mg Tab.er.24h 100 MG PO DAILY, TAB Discontinued Medications: Aspirin (Aspirin EC) 81 Mg Tablet.dr 81 MG PO DAILY, TAB Patient Instructions Patient Instructions: No smoking ARIEL MARTELL MD FACP FAC CCDS Nov 02, 2019 13:48
--- NOTE | 2019-11-02 13:48 | Discharge Inst-Post CATH ---
Discharge Inst-CATH/EP Post Cardiac Cath/EP D/C Inst Follow Up/Plan F/u with Dr Meek in 5-6 weeks ACTIVITY * Go Home directly and rest. * Limit activity of the leg (or wrist if it was used) for 7 days including aerobics, swimming, jogging, bicycling, etc. * Restrict stair-climbing for 7 days if possible, if not, climb up with your non-cath leg, then bring together on the same step. * Avoid lifting, pushing, pulling or excessive movement of the affected extremity for 7 days. * Customary sexual activity may be resumed after 2 days-use caution not to use a position that strains or causes pain to the affected extremity. * No driving for 24 hours. * NO SMOKING. * Avoid straining for bowel movements for 7 days. * Gentle walking on level ground is allowed. * Returning to work will depend on the type of procedure and the results. Your doctor will discuss this with you. CALL YOUR DOCTOR FOR ANY OF THE FOLLOWING: *If bleeding from the puncture site occurs- Apply gentle pressure to site with clean cloth and call your doctor or EMS. * If a knot or lump forms under the skin, increases in size, or causes pain. * If bruising appears to be worsening or moving further down your leg instead of disappearing. * Temperature above 101 F. CARE OF YOUR GROIN INCISION; * Bruising or purple discoloration of the skin near the puncture site is common. * You may shower only, no bathtub bathing for 5 days. Be careful to avoid slipping as your leg may feel stiff. * If a closure device was used on your femoral artery, please see the attached guide regarding care of the device and your leg. * Leave dressing on FOR 24 hours. CARE OF YOUR WRIST INCISION; * Bruising or purple discoloration of the skin near the puncture site is common. * You may shower. * DO NOT submerge wrist. * Leave dressing on FOR 24 hours. ARIEL MEEK MD FACP FAC CCDS Nov 02, 2019 13:48
--- NOTE | 2019-11-02 13:57 | CARDIAC CATHETERIZATION ---
DATE OF SERVICE: 11/02/2019 CARDIAC CATHETERIZATION REPORT The patient is a 44-year-old lady, who has multiple coronary artery disease risk factors and who has been experiencing symptoms that are suggestive of new onset angina. Cardiac catheterization was carried out after having obtained informed consent. DESCRIPTION OF PROCEDURE: She was brought to the cardiac catheterization laboratory in a fasting state. Right groin was prepared and draped in the usual sterile fashion. Lidocaine 1% was used for local anesthesia. Modified Seldinger technique was used to advance a 5-Cypriot sheath in the right femoral artery. Angiography of the right femoral artery was carried out through the sheath. A 5-Cypriot JL3.5 catheter was used for left coronary angiography and 5-Cypriot JR4 catheter was used for right coronary angiography. A 5-Cypriot pigtail catheter was used for left heart catheterization and left ventricular angiography. At the end of the procedure, Mynx was used to achieve hemostasis. She tolerated the procedure well. HEMODYNAMICS: Left ventricular end-diastolic pressure following coronary angiography was 7 mmHg. There is no significant pressure gradient on pullback across the aortic valve. Ascending aortic pressure was 123/62 with a mean of 88 mmHg. CORONARY ANGIOGRAPHY: Left main coronary artery is free of significant disease. Left anterior descending artery has approximately 40% ostial and proximal stenosis. Left circumflex artery has a 30% to 40% ostial and proximal stenosis. Right coronary artery is dominant and has 30% to 40% proximal stenosis and 50 to 60% stenosis in the ostial and proximal portions of the posterior descending branch of the right coronary artery. LEFT VENTRICULAR ANGIOGRAPHY: Left ventricular angiography was carried out in the right anterior oblique projection. Global left ventricular systolic function normal. No regional wall motion abnormalities are seen. Left ventricular ejection fraction approximately 65%. CONCLUSIONS: 1. Moderate coronary artery disease consisting of 40% to 50% stenosis in the ostial and proximal portion of the left anterior descending and the left circumflex, and a 40% to 50% stenosis in the proximal portion of the right coronary and 50 to 60% stenosis in the ostial and proximal portion of the posterior descending branch of the right coronary artery. 2. Normal global left ventricular systolic function with ejection fraction approximately 60%. 3. Normal left ventricular end-diastolic pressure. DISCUSSION AND RECOMMENDATIONS: Based on results of the study, it appears appropriate to continue a conservative approach. Risk factor modification has been discussed with her in detail. Avoidance of tobacco use is advised. Other risk factor modification is advised. Compliance with medications is advised. Outpatient followup is advised. Job ID: [id number] DocumentID: [id number] Dictated Date: 11/02/2019 13:38:35 Tower Climber Date: 11/02/2019 13:57:03 Dictated By: ARIEL MARTELL MD, MA, FACP, FACC,
--- NOTE | 2019-11-02 15:10 | NUR ---
HOB ELEVATED 30 DEGREES. SANDWICH GIVEN TO THE PATIENT. VSS. NO SIGNS OF BLEEDING. REPORT TO Stephania MONTOYA RN.
== END 2019-11-02 17:00 | disposition home or self-care (01) ==
LOC: CATH 11:26 → SDC 14:00 → CATH 17:00
PROVIDERS: ATTEND Internal Medicine Cardiovascular Disease
DX: I25.10 Atherosclerotic heart disease of native coronary artery without angina pectoris (principal); I10 Essential (primary) hypertension; R55 Syncope and collapse; R06.09 Other forms of dyspnea; E78.5 Hyperlipidemia, unspecified; Z79.899 Other long term (current) drug therapy
CPT/HCPCS: 36415; 80053; 80061; 85027; 85610; 85730; 87081; 93458